=== PATIENT | male | born 1965 | race Two or more races ===

== ENCOUNTER 2025-03-08 01:49 | Emergency (ER) | payer OTHER ==
[~2025-03-08] VITALS: Ht 170.2 cm; Wt 36.4 kg
[2025-03-08 02:01] VITALS: TEMP 97.5
[2025-03-08 04:25] VITALS: BP 146/66; PULSE 70; RESP 18; O2SAT 99
== END 2025-03-08 06:18 ==
LOC: EMS 05:31
DX: T46.1X1A Poisoning by calcium-channel blockers, accidental (unintentional), initial encounter (principal); J02.9 Acute pharyngitis, unspecified; I10 Essential (primary) hypertension; Y92.89 Other specified places as the place of occurrence of the external cause
CPT/HCPCS: 99283; Z7502